=== PATIENT | male | born 1965 | race Caucasian/White ===

== ENCOUNTER 2016-07-20 18:40 | Emergency (ER) | payer OTHER ==
[~2016-07-20] VITALS: Ht 172.7 cm; Wt 74.8 kg
[2016-07-20 19:57] LABS: ABSOLUTE BASOPHIL COUNT 0 /CUMM (0.0-0.2); ABSOLUTE EOSINOPHIL COUNT 0.1 /CUMM (0.0-0.7); ABSOLUTE GRANULOCYTE CT 4.6 /CUMM (1.4-6.5); ABSOLUTE LYMPH COUNT 0.7 /CUMM (1.2-3.4); ABSOLUTE MONOCYTE COUNT 0.9 /CUMM (0.10-0.60); BASOPHIL % 0.7 % (0.0-2.0); EOSINOPHIL % 1.6 % (0-5); GRANULOCYTE % 72.2 % (42.2-75.2); HEMATOCRIT 42.8 % (42-52); MEAN CORPUSCULAR HGB 29.6 PG (27.0-31.0); MEAN CORPUSCULAR HGB CONC 33.8 G/DL (33.0-37.0); MEAN CORPUSCULAR VOLUME 87.5 FL (80.0-94.0); MEAN PLATELET VOLUME 9.6 FL (7.4-10.4); PLATELET COUNT 179 /CUMM (130-400); RBC DISTRIBUTION WIDTH 12.6 % (11.5-14.5); RED BLOOD CELL CT 4.89 /CUMM (4.70-6.10); WHITE BLOOD CELL COUNT 6.4 /CUMM (4.8-10.8)
--- NOTE | 2016-07-20 20:34 | RADIOLOGY REPORT ---
EXAMINATION: XR CHEST CLINICAL INFORMATION: Cough. COMPARISON: None TECHNIQUE: 2 views of the chest were obtained. FINDINGS: No significant abnormality is noted involving the heart, lungs, mediastinum, bony thorax or soft tissues. IMPRESSION: Unremarkable examination.
--- NOTE | 2016-07-20 21:26 | ED INFLUENZA/URI COMPLAINT ---
History of Present Illness General Chief Complaint: General Adult Stated Complaint: FEVER,SOB,BODY ACHES,GEN WEAKNESS Source: patient, family Exam Limitations: no limitations Vital Signs & Intake/Output Vital Signs & Intake/Output Vital Signs Date Time Temp Pulse Resp B/P Pulse O2 O2 Flow FiO2 Ox Delivery Rate 07/20 2143 99.8 90 19 112/72 98 Room Air 07/20 2132 100 Room Air 07/20 1926 99.5 89 18 110/68 100 Room Air Allergies Coded Allergies: No Known Allergies (07/20/16) Reconcile Medications Ibuprofen 800 MG TABLET 1 TAB PO TID PRN PAIN Ondansetron (Zofran Odt) 4 MG TAB.RAPDIS 1 TAB PO Q6 PRN NAUSEA Oseltamivir Phosphate (Tamiflu) 75 MG CAPSULE 1 CAP PO BID INFLUENZA Triage Note: PT TO ED FOR GENERALIZED BODY ACHES, HEADACHE, COUGH, SORE THROAT, NAUSEA FOR 2 DAYS. TRIED ADVIL AT HOME WITH NO RELIEF. Triage Nurses Notes Reviewed? yes Onset: Abrupt Duration: day(s): (2) Timing: recent history Severity: severe No Modifying Factors: none Associated Symptoms: fever/chills, muscle aches, WEAKNESS HPI: This is a 51-year-old male presents to the ER with chief complaint of body aches , fever, chills and feeling very unwell for the last 2 days. Temperature is been high at home but did not measure it. He states he has been unable to get out of bed for the last 2 days or drink or eat anything. Denies any similar sick contacts at home but states that his son did have strep throat. Positive cough and shortness of breath. Past History Travel History Traveled to [place] past 21 day No Medical History Any Pertinent Medical History? see below for history Neurological: NONE EENT: NONE Cardiovascular: NONE Respiratory: NONE Gastrointestinal: NONE Hepatic: NONE Renal: NONE Musculoskeletal: NONE Psychiatric: NONE Endocrine: NONE Blood Disorders: NONE Cancer(s): NONE Surgical History Surgical History: KNEE SURGERY Psychosocial History What is your primary language Northern Irish Tobacco Use: Never used ETOH Use: denies use Illicit Drug Use: denies illicit drug use Family History Hx Contributory? No Review of Systems Review of Systems Constitutional: Reports: chills, fever, weakness. EENTM: Reports: no symptoms. Respiratory: Denies: cough, short of breath. Cardiovascular: Denies: chest pain, palpitations. GI: Denies: abdominal pain, diarrhea, vomiting. Genitourinary: Reports: no symptoms. Musculoskeletal: Reports: muscle pain. Skin: Reports: no symptoms. Neurological/Psychological: Reports: no symptoms. Hematologic/Endocrine: Denies: bruising, bleeding, polyuria, polydipsia. Immunologic/Allergic: Denies: splenectomy. All Other Systems: Reviewed and Negative Physical Exam Physical Exam General Appearance: well developed/nourished, alert, awake, moderate distress Head: atraumatic, normal appearance Eyes: Bilateral: PERRL, EOMI. Ears, Nose, Throat: DRY MUCUS MEMBRANES Neck: normal inspection, supple, full range of motion Respiratory: normal breath sounds, chest non-tender, no respiratory distress Peripheral Pulses: 2+ radial (R), 2+ radial (L) Gastrointestinal: normal bowel sounds, soft, non-tender Back: normal inspection, normal range of motion Extremities: normal inspection, normal capillary refill, normal range of motion, no edema Neurologic/Psych: no motor/sensory deficits, awake, alert, oriented x 3 Skin: intact, normal color, warm/dry Core Measures Severe Sepsis Present: No Septic Shock Present: No Progress Differential Diagnosis: influenza, pharyngitis Plan of Care: Orders Procedure Date/time Status RAPID VIRAL INFLUENZA A 07/20 1927 Complete COMPREHENSIVE METABOLIC PANEL 07/20 1927 Complete CBC WITHOUT DIFFERENTIAL 07/20 1927 Complete Laboratory Tests 07/20/161948: Anion Gap 13, Estimated GFR > 60, BUN/Creatinine Ratio 19.0, Glucose 87, Calcium 9.1, Total Bilirubin 0.7, AST 33, ALT 51, Alkaline Phosphatase 74, Total Protein 7.4, Albumin 4.1, Globulin 3.3, Albumin/Globulin Ratio 1.2, CBC w Diff NO MAN DIFF REQ, RBC 4.89, MCV 87.5, MCH 29.6, RDW 12.6, MPV 9.6, Gran % 72.2, Lymphocytes % 10.9 L, Monocytes % 14.6 H, Eosinophils % 1.6, Basophils % 0.7, Absolute Granulocytes 4.6, Absolute Lymphocytes 0.7 L, Absolute Monocytes 0.9 H, Absolute Eosinophils 0.1, Absolute Basophils 0, PUBS MCHC 33.8 CXR, INFLUENZA SWAB. PO TYLENOL ORDERED. IV NS BOLUS X 2, IV TORADOL ORDERED. INFLUENZA POSITIVE. TAMIFLU, ZOFRAN ORDERED. (CALI DENNY,[place]) Diagnostic Imaging: Viewed by Me: Radiology Read. Discussed w/RAD: Radiology Read. CXR Impression: PATIENT: EDUIN JUARES PRESENT AGE: 51 PATIENT ACCOUNT NO: [id number] : 63 LOCATION: [facility] ORDERING PHYSICIAN: ANGELICA RAMIREZ DO SERVICE DATE: 07/20/16 EXAM TYPE: RAD - XRY-CHEST XRAY, PA AND LATERAL EXAMINATION: XR CHEST CLINICAL INFORMATION: Cough. COMPARISON: None TECHNIQUE: 2 views of the chest were obtained. FINDINGS: No significant abnormality is noted involving the heart, lungs, mediastinum, bony thorax or soft tissues. IMPRESSION: Unremarkable examination. DICTATED BY: ZAFAR APPLE MD DATE/TIME DICTATED:07/20/162030 TRAINING DEVELOPMENT MANAGER:JAMIR DATE/ TIME TRANSCRIBED:07/20/162030 CONFIDENTIAL, DO NOT COPY WITHOUT APPROPRIATE AUTHORIZATION. <Electronically signed in Other Vendor System> SIGNED BY: ZAFAR APPLE MD 07/20/162033 Initial ED EKG: none Departure Departure Disposition: HOME OR SELF CARE Condition: Stable Clinical Impression Primary Impression: Influenza Referrals: TIMBO DENNY,GRISELDA De La Cruz (PCP/Family) Additional Instructions: Tamiflu and ibuprofen as directed. Drink plenty of fluids and get plenty of rest. Please follow up with her doctor in the office as needed. Return to the ER for any worsening symptoms. Departure Forms: Customer Survey General Discharge Information Prescriptions: Current Visit Scripts Oseltamivir Phosphate (Tamiflu) 1 CAP PO BID #9 CAP Ibuprofen 1 TAB PO TID PRN PAIN #20 TAB Ondansetron (Zofran Odt) 1 TAB PO Q6 PRN NAUSEA #10 TAB
[2016-07-20] MEDS ORDERED: TAMIFLU75 M1 PO (22:37)
[2016-07-20] MEDS ORDERED: IBUPROFEN800 M1 PO (22:37)
[2016-07-20] MEDS ORDERED: ZOFRAN ODT4 M1 PO (22:46)
[2016-07-20 23:12] VITALS: BP 110/68
== END 2016-07-20 23:13 ==
LOC: ERH 18:40
PROVIDERS: Emergency Medicine
DX: J11.1 Influenza due to unidentified influenza virus with other respiratory manifestations (principal)
CPT/HCPCS: 87804; 87804-59; 96361; 96374; 96375; J1885; J2405